=== PATIENT | female | born 2000 | race Caucasian/White ===

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

== ENCOUNTER → 2022-09-06 13:34 | Outpatient (CLI) | payer BC, SELFPAY | PROVIDERS: Visit Provider Nurse Practitioner Family | DX: J02.9 Acute pharyngitis, unspecified (principal) | CPT/HCPCS: 87070; 87880 ==

== ENCOUNTER 2022-09-26 11:47 | Emergency (ER) | payer BC, OTHER, SELFPAY ==
[2022-09-26 12:15] VITALS: BP 150/72; PULSE 84; RESP 18; TEMP 36.7; O2SAT 99; BMI 37.1
== END 2022-09-26 13:05 | disposition left against medical advice (07) ==
PROVIDERS: Emergency Provider Emergency Medicine
CPT/HCPCS: 99281

== ENCOUNTER → 2024-01-15 18:11 | Outpatient (CLI) | payer BC, SELFPAY | PROVIDERS: Visit Provider Physician Assistant | DX: J02.9 Acute pharyngitis, unspecified (principal) | CPT/HCPCS: 87070; 87077; 87147 ==

== ENCOUNTER → 2025-02-11 11:16 | Outpatient (CLI) | payer OTHER, SELFPAY ==
[2025-02-11 20:06] LABS: Urine N gonorrhoeae NOT DETECTED
[2025-02-11 20:12] LABS: Urine Chlamydia NOT DETECTED
== END ==
PROVIDERS: Visit Provider Registered Nurse
DX: N89.8 Other specified noninflammatory disorders of vagina (principal); R30.0 Dysuria
CPT/HCPCS: 87086; 87210; 87491; 87591

== ENCOUNTER 2025-04-01 09:21 | Emergency (ER) | payer OTHER, SELFPAY ==
[2025-04-01] VITALS (9 sets, daily range): BP systolic 118–129; BP diastolic 68–87; PULSE 91–100; RESP 14; TEMP 36.6–37; O2SAT 95–100; BMI 41.6
[2025-04-01 10:23] LABS: Add Manual Diff / Slide Review NO; Basophils Absolute Auto 100 /uL (0-100); Basophils Percent Auto 0.6 % (0-2); Eosinophils Absolute Auto 0 /uL (0-450); Eosinophils Percent Auto 0.3 % (2-4); Hematocrit 41.3 % (36-46); Hemoglobin 14.1 g/dL (12.0-16.0); Lymphocytes Absolute Auto 2200 /uL (1100-4500); Lymphocytes Percent Auto 24.2 % (25-40); Mean Corpuscular Hemoglobin 30.1 PG (26-34); Mean Corpuscular Volume 88.5 fL (80-100); Monocytes Absolute Auto 900 /uL (0-900); Monocytes Percent Auto 10.4 % (3-14); Neutrophils Absolute Auto 5900 /uL (1500-7000); Neutrophils Percent Auto 64.5 % (50-75); Platelet Count 231 X10^3/uL (150-400); Red Blood Cell Count 4.67 X10^6/uL (4.0-5.2); White Blood Cell Count 9.1 X10^3/uL (4.5-11.0)
--- NOTE | 2025-04-01 10:23 | ED.NECK ---
HPI - Neck Pain/Injury General Chief Complaint: Upper Respiratory Symptoms Stated Complaint: Swollen right tonsil Time Seen by Provider: 04/01/25 10:18 Mode of arrival: Ambulatory History of Present Illness HPI Narrative: Patient here for throat pain and swelling chills for the past 3 days. Patient is seen at urgent care in [place] this past Sunday and was started on amoxicillin. She states strep screen was negative. She was given intramuscular steroid and then prescription for oral steroids which she took on Sunday but did not take it yesterday or today because not able to sleep and feeling sweaty. Patient does not want CT imaging today. Related Data Home Medications ?Medication ?Instructions ?Recorded ?Confirmed escitalopram oxalate 20 mg tablet 20 mg PO BEDTIME 09/26/22 02/11/25 norethindrone 1 mg-ethinyl tab PO 02/11/25 02/11/25 estradiol 20 mcg (21)-iron 75 mg (7) tablet (Maria Eugenia Fe 11/24 ()) Previous Rx's ?Medication ?Instructions ?Recorded clindamycin HCl 300 mg capsule 300 mg PO Q6H #28 caps 04/01/25 Allergies Allergy/AdvReac Type Severity Reaction Status Date / Time No Known Drug Allergies Allergy Verified 04/01/25 09:25 Review of Systems Review of Systems Narrative: GENERAL: Negative chills, fatigue, malaise, fever, sweats. HEENT: Negative sinus pain, ear pain, positive sore throat RESPIRATORY: Negative dyspnea, cough CARDIOVASCULAR: Negative chest pain, palpitations GASTROINTESTINAL: Negative vomiting, nausea, abdominal pain : Negative dysuria, frequency, hematuria MUSCULOSKELETAL: Negative muscle or bony pain SKIN: Negative rash, skin lesions NEUROLOGIC: Negative weakness, numbness ROS Unobtainable: All systems reviewed & are unremarkable except as noted in HPI and below Patient History Social History Smoking Status: Unknown if ever smoked Smoking Status: Unknown if ever smoked alcohol intake frequency: 0-2 drinks per day Exam Narrative Exam Narrative: GENERAL: in no distress, not toxic not dyspneic HEAD: Normocephalic. EYES: Pupils equal round ENT: Mucous membranes moist. No malocclusion or trismus. No tongue elevation or drooling. No uvula shift. There is symmetric bilateral pharyngeal erythema edema with punctate exudates. No hot potato voice. NECK: Trachea midline. CARDIOVASCULAR: Regular rate and rhythm RESPIRATORY: Clear to auscultation. Breath sounds equal bilaterally. No wheezes, rales, or rhonchi. NEURO: AOx4. Clear speech SKIN: Warm and dry PSYCH: Not anxious, is cooperative Initial Vital Signs Initial Vital Signs: Vital Signs Temperature 98.6 F 04/01/25 09:25 Pulse Rate 99 H 04/01/25 09:25 Respiratory Rate 14 04/01/25 09:25 Blood Pressure 123/87 04/01/25 09:25 Pulse Oximetry 98 04/01/25 09:25 Oxygen Delivery Method Room Air 04/01/25 09:25 Course Orders Ordered: Discontinued Medications Clindamycin HCl (Clindamycin 150 Mg Capsule) 300 mg PO NOW ONE Stop: 04/01/25 10:34 Last Admin: 04/01/25 10:44 Dose: 300 mg Documented By: FLORES Dexamethasone (Dexamethasone 10 Mg/Ml Vial) 10 mg IV NOW ONE Stop: 04/01/25 10:23 Last Admin: 04/01/25 10:43 Dose: 10 mg Documented By: FLORES Sodium Chloride (Normal Saline 0.9%) 1,000 mls @ 1,000 mls/hr IV BOLUS ONE Stop: 04/01/25 11:21 Last Infusion: 04/01/25 11:57 Dose: Infused Documented By: Infusion: 04/01/25 11:50 Dose: 999 mls/hr Documented By: Infusion: 04/01/25 11:45 Dose: 0 mls/hr Documented By: Admin: 04/01/25 10:43 Dose: 1,000 mls/hr Documented By: FLORES Vital Signs Vital signs: Vital Signs - 8 hr 04/01/25 09:25 04/01/25 09:31 04/01/25 09:32 Temperature 98.6 F Pulse Rate 99 H 100 H Respiratory Rate 14 Blood Pressure 123/87 123/86 Pulse Oximetry 98 95 Oxygen Delivery Method Room Air 04/01/25 09:32 04/01/25 10:00 04/01/25 10:30 Temperature Pulse Rate 98 H 96 H 94 H Respiratory Rate Blood Pressure Pulse Oximetry 99 97 97 Oxygen Delivery Method 04/01/25 10:50 04/01/25 10:50 04/01/25 11:00 Temperature Pulse Rate 91 H Respiratory Rate Blood Pressure 129/77 120/68 Pulse Oximetry 100 Oxygen Delivery Method 04/01/25 11:00 04/01/25 11:30 04/01/25 11:30 Temperature Pulse Rate 93 H 97 H Respiratory Rate Blood Pressure 118/76 Pulse Oximetry 100 100 Oxygen Delivery Method MDM - Neck Pain/Injury Lab Data 04/01/25 09:46 04/01/25 09:46 Labs: Lab Results 04/01/25 04/01/25 Range/Units 09:46 10:28 WBC 9.1 (4.5-11.0) X10^3/uL RBC 4.67 (4.0-5.2) X10^6/uL Hgb 14.1 (12.0-16.0) g/dL Hct 41.3 (36-46) % MCV 88.5 (80-100) fL MCH 30.1 (26-34) PG MCHC 34.0 (30-36) % RDW 13.0 (11.6-14.8) % Plt Count 231 (150-400) X10^3/uL Neut % (Auto) 64.5 (50-75) % Lymph % (Auto) 24.2 L (25-40) % Newton % (Auto) 10.4 (3-14) % Eos % (Auto) 0.3 L (2-4) % Baso % (Auto) 0.6 (0-2) % Neut # (Auto) 5900 (4421-3950) /uL Lymph # (Auto) 2200 (0192-9070) /uL Newton # (Auto) 900 (0-900) /uL Eos # (Auto) 0 (0-450) /uL Baso # (Auto) 100 (0-100) /uL Sodium 139 (137-145) mmol/L Potassium 3.9 (3.4-5.1) mmol/L Chloride 104 (98-107) mmol/L Carbon Dioxide 24 (22-32) mmol/L BUN 17 (7-17) mg/dL Creatinine 1.03 (0.52-1.04) mg/dL Estimated GFR > 60 (>60) mL/min BUN/Creatinine Ratio 16.5 (6-22) Glucose 84 (70-99) mg/dL Calcium 9.8 (8.4-10.2) mg/dL Total Bilirubin 0.5 (0.2-1.3) mg/dL AST 47 H (14-36) IU/L ALT 81 H (<35) IU/L Alkaline Phosphatase 90 (38-126) U/L Total Protein 8.5 H (6.3-8.2) g/dL Albumin 4.6 (3.5-5.0) g/dL Globulin 3.9 (1.7-4.1) g/dL Albumin/Globulin Ratio 1.2 (1.0-2.8) Serum , Qual Negative (Negative) Group A Strep (PCR) Negative (Negative) [facility] Narrative Medical decision making narrative: Patient here for throat pain and swelling chills for the past 3 days. Patient is seen at urgent care in [place] this past Sunday and was started on amoxicillin. She states strep screen was negative. She was given intramuscular steroid and then prescription for oral steroids which she took on Sunday but did not take it yesterday or today because not able to sleep and feeling sweaty. Patient does not want CT imaging today. After history and exam, CBC CMP strep screen normal saline Decadron test, likely start clindamycin. Patient refuses CT imaging [facility] Medical records reviewed: No recent visit here for this complaint Differential considered: Includes but not limited to pharyngitis strep throat peritonsillar abscess retropharyngeal abscess Lab Test results independently reviewed as above. Pertinent findings: WBC 9.1 hemoglobin 14.1 strep screen negative, negative Consultations: None indicated at this time Re-evaluations: 11:47 a.m.. Patient feeling much better. Airway intact. Patient able swallow clindamycin medication. Patient states she already has appointment with ENT in [place] April 13, she has had 5 strep infections has an adult. Return precautions reviewed. Work note provided. She desires discharge home. Airway intact. Discussion: Appropriate for discharge home exam is reassuring. Airway intact. Not toxic at discharge. Patient feeling much better. Patient already is established ENT appointment in April. She desires discharge home. Work note provided. Treating clinically for strep throat. May be false negative strep screen. Patient declined CT imaging to evaluate for abscess/airway Diagnosis: Tonsillitis Discharge Plan Departure Patient Disposition: Home Clinical Impression: Acute tonsillitis Qualifiers: Pharyngitis/tonsillitis etiology: unspecified etiology Qualified Code(s): J03.90 - Acute tonsillitis, unspecified Instructions: DI for Pharyngitis/Tonsillopharyngitis -- Adult Activity Restrictions/Additional Instructions: Please continue steroid pack that was prescribed to you earlier this week, continue tomorrow. Please see the ENT doctor April 13 as scheduled. Work note has been provided for you. Keep well hydrated. New antibiotics have been prescribed for you to [facility]. Please discontinue the previous antibiotic from this week. Keep well hydrated. Return if worse if any questions or concerns or trouble breathing or swallowing. Prescriptions: New clindamycin HCl 300 mg capsule 300 mg PO Q6H Qty: 28 0RF No Action norethindrone-e.estradiol-iron [Maria Eugenia Fe 11/24 (28)] 1 mg-20 mcg (21)/75 mg (7) tablet PO escitalopram oxalate 20 mg tablet 20 mg PO BEDTIME Referrals: Miscellaneous,Doctor, MD [Non-Staff, Medical] Stand Alone Forms: Patient Portal/API/Survey, Work Release Note
[2025-04-01 10:28] LABS: Pregnancy Test Serum,Qual Negative (Negative)
[2025-04-01 10:29] LABS: Alanine Aminotransferase 81 IU/L (<35); Albumin 4.6 g/dL (3.5-5.0); Albumin Globulin Ratio 1.2 (1.0-2.8); Alkaline Phosphatase 90 U/L (38-126); Aspartate Aminotransferase 47 IU/L (14-36); BUN Creatinine Ratio 16.5 (6-22); Bilirubin Total 0.5 mg/dL (0.2-1.3); Blood Urea Nitrogen 17 mg/dL (7-17); Calcium 9.8 mg/dL (8.4-10.2); Carbon Dioxide 24 mmol/L (22-32); Chloride 104 mmol/L (98-107); Estimated Glomerular Filt Rate > 60 mL/min (>60); Globulin 3.9 g/dL (1.7-4.1); Glucose 84 mg/dL (70-99); HEMOLYSIS < 15 (0-50); Potassium 3.9 mmol/L (3.4-5.1); Sodium 139 mmol/L (137-145); Total Protein 8.5 g/dL (6.3-8.2)
--- NOTE | 2025-04-01 10:31 | PC.NURSE ---
Pt reports pain swelling since Sunday. states she was seen at [facility] who stated she did not have strep but treated her with amoxicillin and steroids. Pt reports she prematurely stopped steroids d/t side effects. Pt has noted speech changes and difficutly sleeping at night. white spot noted on right tonsil. pt able to manage secretions. respirations regular and unlabored. tonsils are not kissing.
[2025-04-01 10:40] LABS: Strep Grp A by PCR Rapid Negative (Negative)
[2025-04-01] MEDS: SODIUM CHLORIDE 0.9% 1,000 ML 1000 ML IV (10:43)
[2025-04-01] MEDS: DEXAMETHASONE 10 MG/ML VIAL IV (10:43)
[2025-04-01] MEDS: CLINDAMYCIN 150 MG CAPSULE 300 MG PO (10:44)
--- NOTE | 2025-04-01 11:45 | PC.NURSE ---
stated to stop fluids at half bag.
== END 2025-04-01 11:58 | disposition home or self-care (01) ==
PROVIDERS: Emergency Provider Emergency Medicine; PCP Student in an Organized Health Care Education/Training Program
DX: J03.90 Acute tonsillitis, unspecified (principal)
CPT/HCPCS: 80053; 84703; 85025; 87651; 96361; 96374; 99284; J1100